=== PATIENT | female | born 1980 | race Caucasian/White ===

== ENCOUNTER → 2017-04-27 | Outpatient (CLI) | payer OTHER ==
--- NOTE | 2017-04-28 08:59 | RADIOLOGY REPORT (SQ) ---
EXAM DESCRIPTION: MRI HEAD COMBO COMPLETED DATE/TIME: 04/27/2017 9:34 pm REASON FOR STUDY: MULTIPLE SCLEROSIS G35 MULTIPLE SCLEROSIS COMPARISON: None. TECHNIQUE: Multiplanar imaging includes noncontrasted T1, T2, FLAIR, diffusion with ADC map and post gadolinium contrast T1 sequences. Images stored on PACS. CONTRAST TYPE AND DOSE: 20 mL Multihance. RENAL FUNCTION: None required. The patient is less than 50 years old. LIMITATIONS: None. FINDINGS: ANATOMY: No anomalies. Normal vascular flow voids. Pituitary fossa normal. CSF SPACES: Normal in size and contour. No hemorrhage. CEREBRUM: Sulci and gyri normal in size and contour. Approximately 10 subcentimeter foci of increase d signal on FLAIR sequence in the frontal lobe deep white matter, the largest about 7 mm right fronta l lobe. No evidence of hemorrhage, mass, or extraaxial fluid collection. No abnormal enhancement pos t contrast. POSTERIOR FOSSA: No signal alteration. No hemorrhage. No edema, masses, or mass effect. Internal sofya tory canals, cerebellopontine angles, mastoids normal. No enhancing lesions. No abnormal enhancement post contrast. DIFFUSION IMAGING: Negative for acute or subacute infarction. ORBITS: No masses. Globes normal. PARANASAL SINUSES: No fluid levels. Mucosa normal. OTHER: No other significant finding. IMPRESSION: Quiescent white matter lesions. No evidence of active demyelination. TECHNICAL DOCUMENTATION: JOB ID: [id number] [employer]- All Rights Reserved
== END ==
LOC: RAD 20:46
PROVIDERS: ATTEND Specialist
DX: G35 Multiple sclerosis (principal)
CPT/HCPCS: 70553; A9577

== ENCOUNTER 2018-05-05 18:43 | Emergency (ER) | payer OTHER ==
[2018-05-05] MEDS ORDERED: ONDANSETRON 4 MG TAB.RAPDIS PO ONE (19:36)
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
[2018-05-05 20:38] VITALS: BP 131/80
== END 2018-05-05 20:38 | disposition home or self-care (01) ==
LOC: ER 18:43
DX: S16.1XXA Strain of muscle, fascia and tendon at neck level, initial encounter (principal); R51 Headache; R42 Dizziness and giddiness; R11.0 Nausea; V43.52XA Car driver injured in collision with other type car in traffic accident, initial encounter; Z88.0 Allergy status to penicillin; Z90.49 Acquired absence of other specified parts of digestive tract; Z90.710 Acquired absence of both cervix and uterus
CPT/HCPCS: 99284; 70450; 72125; S0119

== ENCOUNTER 2018-06-06 13:51 | Emergency (ER) | payer OTHER ==
[2018-06-06 14:10] VITALS: BP 116/74
[2018-06-06] MEDS ORDERED: OXYCODONE HCL IR 5 MG TABLET PO ONE (14:59)
--- NOTE | 2018-06-06 15:01 | ER Document Report ---
ED Medical Screen (RME) - General Chief Complaint: Abdominal Pain Stated Complaint: ABDOMINAL PAIN Time Seen by Provider: 06/06/18 14:55 Notes: RAPID MEDICAL EVALUATION DISCLOSURE I have seen this patient as part of a Rapid Medical Evaluation and, if applicable, placed any initially appropriate orders. The patient will be seen and fully evaluated, including a full history and physical exam, by a provider ( in Main ED or Fast Track) when a room becomes available. 37-year-old female here with complaints of abdominal wall redness and "mass" ongoing for the past 1 week but progressively worsening. She has also had some fevers and chills. She has tried ibuprofen with not much relief. She has no prior history of MRSA. EXAM There are a few spots of acne vulgaris on abdominal wall without fluctuance or induration On the right abdominal wall, there is a 8 x 8 cm area of erythema induration Difficult to ascertain if there is any fluctuance to this area TRAVEL OUTSIDE OF THE [place] IN LAST 30 DAYS: No - Related Data Allergies/Adverse Reactions: glatiramer acetate [From Copaxone] Allergy (Intermediate, Verified 06/06/18 13: 53) Penicillins Allergy (Verified 06/06/18 13:53) Past Medical History - Social History Chew tobacco use (# tins/day): No Frequency of alcohol use: None Drug Abuse: None Pulmonary Medical History: Reports: Hx Bronchitis, Hx Pneumonia Neurological Medical History: Denies: Hx Seizures Renal/ Medical History: Denies: Hx Peritoneal Dialysis Musculoskeltal Medical History: Reports Hx Arthritis, Reports Hx Multiple Sclerosis, Reports Hx Musculoskeletal Deformity, Reports Hx Musculoskeletal Trauma Psychiatric Medical History: Reports: Hx Depression Past Surgical History: Reports: Hx Appendectomy, Hx Cholecystectomy, Hx Hysterectomy, Hx Tonsillectomy. Denies: Hx Pacemaker - Immunizations Hx Diphtheria, Pertussis, Tetanus Vaccination: Yes Physical Exam - Vital signs Vitals: Temp Pulse Resp BP Pulse Ox 97.7 F 110 H 20 116/74 97 06/06/18 14:08 06/06/18 14:08 06/06/18 14:08 06/06/18 14:08 06/06/18 14:08 Course - Vital Signs Vital signs: Temp Pulse Resp BP Pulse Ox 97.7 F 110 H 20 116/74 97 06/06/18 14:08 06/06/18 14:08 06/06/18 14:08 06/06/18 14:08 06/06/18 14:08
[2018-06-06 15:35] LABS: ABSOLUTE BASOPHILS # (AUTO) 0.1 10^3/uL (0.0-0.2); ABSOLUTE EOSINOPHILS # (AUTO) 0.2 10^3/uL (0.0-0.6); ABSOLUTE LYMPHOCYTES (AUTO) 1.5 10^3/uL (0.5-4.7); ABSOLUTE NEUT (AUTO) 15.4 10^3/uL (1.7-8.2); BASOPHILS % (AUTO) 0.5 % (0-2); EOSINOPHILS % (AUTO) 0.9 % (0-6); HEMATOCRIT 36.5 % (36.0-47.0); HEMOGLOBIN 12.3 g/dL (12.0-15.5); LYMPHOCYTES % (AUTO) 8.1 % (13-45); MEAN CORPUSCULAR HEMOGLOBIN 29.3 pg (27.0-33.4); MEAN CORPUSCULAR HGB CONC 33.8 g/dL (32.0-36.0); MEAN CORPUSCULAR VOLUME 87 fl (80-97); MONOCYTES % (AUTO) 5.6 % (3-13); PLATELET COUNT 369 10^3/uL (150-450); RED CELL DISTRIBUTION WIDTH 14.1 % (11.5-14.0); SEGMENTED NEUTROPHILS % (AUTO) 84.9 % (42-78); TOTAL CELLS COUNTED % (AUTO) 100 %; WHITE BLOOD COUNT 18.1 10^3/uL (4.0-10.5)
[2018-06-06 15:57] LABS: ALANINE AMINOTRANSFERASE 23 U/L (9-52); ALBUMIN 4.2 g/dL (3.5-5.0); ALKALINE PHOSPHATASE 118 U/L (38-126); ANION GAP 16 (5-19); ASPARTATE AMINO TRANSFERASE 17 U/L (14-36); BILIRUBIN,DIRECT 0.8 mg/dL (0.0-0.4); BLOOD UREA NITROGEN 16 mg/dL (7-20); CALCIUM 9.7 mg/dL (8.4-10.2); CARBON DIOXIDE 26 mmol/L (22-30); CHLORIDE 104 mmol/L (98-107); GLUCOSE 99 mg/dL (75-110); LIPASE 44.3 U/L (23-300); POTASSIUM 3.4 mmol/L (3.6-5.0); SODIUM 146.4 mmol/L (137-145); TOTAL PROTEIN 7.5 g/dL (6.3-8.2)
[2018-06-06] MEDS ORDERED: LIDOCAINE 1% INJ-PF (10 MG/ML) 30 ML SDV INJ ONE ×2 (16:26→17:51)
--- NOTE | 2018-06-06 16:32 | ER Document Report ---
ED General - General TRAVEL OUTSIDE OF THE U.S. IN LAST 30 DAYS: No <TANIA RANDALL - Last Filed: 06/06/18 18:07> <ROGE MORIN - Last Filed: 06/07/18 02:11> - General Chief Complaint: Abdominal Pain Stated Complaint: ABDOMINAL PAIN Time Seen by Provider: 06/06/18 14:55 - HPI Notes: Patient is a 37-year-old female with a history of MS who presents to the ED complaining of an abscess to her right lower abdomen area 1 week. Patient states that she has redness, swelling, and pain associated. She has not noticed any discharge or red streaks at this time. She is still eating and drinking without difficulties. She is urinating normally aside from increased frequency and is having normal bowel movements. Patient states that she has felt sweats on occasion since the start of her abscess. Patient states that she is allergic to penicillins which causes a rash. She denies any history of MRSA. She has no other concerns or complaints at this time. Denies any headache, fever, neck pain, URI, sore throat, chest pain, palpitations, syncope , cough, shortness of breath, wheeze, dyspnea, nausea/vomiting/diarrhea, urinary retention, dysuria, hematuria. (TANIA RANDALL) - Related Data Allergies/Adverse Reactions: glatiramer acetate [From Copaxone] Allergy (Intermediate, Verified 06/06/18 13: 53) Penicillins Allergy (Verified 06/06/18 13:53) Past Medical History - Social History Smoking Status: Never Smoker Chew tobacco use (# tins/day): No Frequency of alcohol use: None Drug Abuse: None Family History: Arthritis, CAD, COPD, CVA, DM, Hyperlipidemia, Hypertension, Malignancy, Thyroid Disfunction Patient has suicidal ideation: No Patient has homicidal ideation: No Pulmonary Medical History: Reports: Hx Bronchitis, Hx Pneumonia Neurological Medical History: Denies: Hx Seizures Renal/ Medical History: Denies: Hx Peritoneal Dialysis Musculoskeletal Medical History: Reports Hx Arthritis, Reports Hx Multiple Sclerosis, Reports Hx Musculoskeletal Deformity, Reports Hx Musculoskeletal Trauma Psychiatric Medical History: Reports: Hx Depression Past Surgical History: Reports: Hx Appendectomy, Hx Cholecystectomy, Hx Hysterectomy, Hx Tonsillectomy. Denies: Hx Pacemaker - Immunizations Hx Diphtheria, Pertussis, Tetanus Vaccination: Yes <TANIA RANDALL - Last Filed: 06/06/18 18:07> Review of Systems - Review of Systems -: Yes All other systems reviewed and negative <TONIA,TANIA - Last Filed: 06/06/18 18:07> Physical Exam <TONIA,TANIA - Last Filed: 06/06/18 18:07> <ROGE MORIN - Last Filed: 06/07/18 02:11> - Vital signs Vitals: Temp Pulse Resp BP Pulse Ox 97.7 F 110 H 20 116/74 97 06/06/18 14:08 06/06/18 14:08 06/06/18 14:08 06/06/18 14:08 06/06/18 14:08 - Notes Notes: PHYSICAL EXAMINATION: GENERAL: Well-appearing, well-nourished and in no acute distress. LUNGS: Breath sounds clear to auscultation bilaterally and equal. No wheezes rales or rhonchi. HEART: Regular rate and rhythm without murmurs, rubs, gallops. ABDOMEN: Soft, nondistended abdomen. No guarding, no rebound. No masses appreciated. Normal bowel sounds present. No CVA tenderness bilaterally. see skin- Musculoskeletal: FROM to passive/active. Strength 5+/5. Extremities: No cyanosis, clubbing, or edema b/l. Peripheral pulses 2+. Capillary refill less than 3 seconds. NEUROLOGICAL: Cranial nerves grossly intact. Normal speech, normal gait. Normal sensory, motor exams PSYCH: Normal mood, normal affect. SKIN: There is an 8x5cm indurated, erythemic, macular area to the rt lower abd wall. + tenderness associated w/o obvious fluctuance. No streaks. (TONIA,TANIA) Course - Laboratory Result Diagrams: 06/06/18 15:20 06/06/18 15:20 <TANIA RANDALL - Last Filed: 06/06/18 18:07> - Laboratory Result Diagrams: 06/06/18 15:20 06/06/18 15:20 <ROGE MORIN - Last Filed: 06/07/18 02:11> - Re-evaluation Re-evalutation: 06/06/18 16:[address] Morin who performed a bedside US. No definite borders to the possible abscess within the infection. We will continue with a CT scan of the abd/pelv. 06/06/18 18:07 Patient is an afebrile, well-hydrated, 37-year-old female who presents to the ED with an abdominal wall cellulitis. Vitals are acceptable without any significant tachycardia, tachypnea, or hypoxia. PE is otherwise unremarkable. Patient is nontoxic-appearing and is tolerating p.o. without any difficulties. CBC did show an elevated white count at 18. CMP was unremarkable. CT scan with IV contrast did not show any evidence of abscess. I did review this thoroughly with Dr. Morin. No I&D warranted at this time. We will give her Cleocin IV and send her home with keflex/bactrim. Reviewed with patient that she needs to monitor symptoms very closely and have a strict follow-up in 48 hours or sooner if warranted with your PCM or come back to the ED. Patient is in agreement. (TANIA RANDALL) 06/07/18 02:06 bedside ultrasound of the abdominal wall was performed by myself. Patient found to have an anechoic fluid collection with internal debris in the right mid abdomen without definitive border. Patient's ultrasound showed cobblestoning which can be indicative of cellulitis. CT scan was obtained and did not show an abscess. Patient advised to return for repeat exam in 48 hours. (ROGE MORIN) - Vital Signs Vital signs: Temp Pulse Resp BP Pulse Ox 97.7 F 110 H 20 116/74 97 06/06/18 14:08 06/06/18 14:08 06/06/18 14:08 06/06/18 14:08 06/06/18 14:08 - Laboratory Laboratory results interpreted by me: 06/06/18 06/06/18 15:20 15:20 WBC 18.1 H RDW 14.1 H Seg Neutrophils % 84.9 H Lymphocytes % 8.1 L Absolute Neutrophils 15.4 H Sodium 146.4 H Potassium 3.4 L Direct Bilirubin 0.8 H Discharge <TANIA RANDALL - Last Filed: 06/06/18 18:07> <ROGE MORIN - Last Filed: 06/07/18 02:11> - Discharge Clinical Impression: Cellulitis of right abdominal wall Condition: Stable Disposition: HOME, SELF-CARE Instructions: Cellulitis ([facility]), Cephalexin ([facility]) Additional Instructions: Keep the skin clean Wash with soap and water Tylenol/ibuprofen if needed Triple antibiotic ointment daily Take medication as directed Monitor for any worsening symptoms Recheck with your PCM in 48 hours or sooner if needed* You may return to the ED in 48 hours as well in lieu of your PCM Consider consult with General Surgeon for ongoing/worsening symptoms Return to the ED with any worsening symptoms and/or development of fever, headache, chest pain, palpitations, syncope, shortness of breath, trouble breathing, abdominal pain, n/v/d, abscess, purulent discharge, red streaks, worsening swelling, or other worsening symptoms that are concerning to you. Prescriptions: Cephalexin Monohydrate [Keflex 500 mg Capsule] 500 mg PO TID #30 capsule Sulfamethoxazole/Trimethoprim [Bactrim Ds Tablet] 1 each PO BID #20 tablet Referrals: MYNOR CUNHA MD [Primary Care Provider] - 06/08/18
--- NOTE | 2018-06-06 17:49 | RADIOLOGY REPORT (SQ) ---
EXAM DESCRIPTION: CT ABD/PELVIS WITH IV ONLY COMPLETED DATE/TIME: 06/06/2018 5:30 pm REASON FOR STUDY: R abd wall abscess? COMPARISON: None. TECHNIQUE: CT scan of the abdomen and pelvis performed using helical scanning technique with dynamic intravenous contrast injection. No oral contrast. Images reviewed with lung, soft tissue, and bone windows. Reconstructed coronal and sagittal MPR images reviewed. Delayed images for evaluation of the urinary system also acquired. All images stored on PACS. All CT scanners at this facility use dose modulation, iterative reconstruction, and/or weight based d osing when appropriate to reduce radiation dose to as low as reasonably achievable (ALARA). [facility]: Dose Right [facility]: CareDose [facility]: Dose Right [facility]: Teradose 4D [facility]: [facility] CONTRAST TYPE AND DOSE: contrast/concentration: Isovue 370.00 mg/ml; Total Contrast Delivered: 92.0 ml; Total Saline Delivered: 45.0 ml RENAL FUNCTION: None required. The patient is less than 50 years old. RADIATION DOSE: CT Rad equipment meets quality standard of care and radiation dose reduction techniq ues were employed. CTDIvol: 12.3 - 14.2 mGy. DLP: 1377 mGy-cm.. LIMITATIONS: None. FINDINGS: LOWER CHEST: No significant findings. No nodules or infiltrates. LIVER: Normal size. No masses. No dilated ducts. SPLEEN: Normal size. No focal lesions. PANCREAS: No masses. No significant calcifications. No adjacent inflammation or peripancreatic fluid collections. Pancreatic duct not dilated. GALLBLADDER: Surgically absent. ADRENAL GLANDS: No significant masses or asymmetry. RIGHT KIDNEY AND URETER: Multiple cysts. No significant calcifications. No hydronephrosis or hydr oureter. LEFT KIDNEY AND URETER: Multiple cysts. No significant calcifications. No hydronephrosis or hydro ureter. AORTA AND VESSELS: No aneurysm. No dissection. Renal arteries, SMA, celiac without stenosis. RETROPERITONEUM: No retroperitoneal adenopathy, hemorrhage or masses. BOWEL AND PERITONEAL CAVITY: No masses or inflammatory changes. No free fluid or peritoneal masses. APPENDIX: Surgically absent. PELVIS: No mass. No free fluid. Normal bladder. ABDOMINAL WALL: Edema is seen along the right lateral abdominal wall. There is an abscess. BONES: No significant or acute findings. OTHER: No other significant finding. IMPRESSION: Innumerable renal cysts. Soft tissue edema along the right lateral abdominal wall without evidence for abscess. TECHNICAL DOCUMENTATION: JOB ID: [id number] Quality ID # [id number]: Final reports with documentation of one or more dose reduction techniques (e.g., Au tomated exposure control, adjustment of the mA and/or kV according to patient size, use of iterative reconstruction technique) 2010 [employer]- All Rights Reserved Reading location - IP/workstation name: [email or web address]
[2018-06-06] MEDS ORDERED: CLINDAMYCIN 600 MG/D5W RTU 600 MG/50 ML RTUPB IV SCH (18:00)
[2018-06-06] MEDS ORDERED: METOCLOPRAMIDE HCL INJ/PF 10 MG/2 ML SDV IV ONE (18:04)
[2018-06-06] MEDS ORDERED: ONDANSETRON ODT 4 MG TAB (6 TAB/ER DISP) PO PRN (18:19)
== END 2018-06-06 18:53 | disposition home or self-care (01) ==
LOC: ER 13:51
DX: L03.311 Cellulitis of abdominal wall (principal); R35.0 Frequency of micturition; R61 Generalized hyperhidrosis; Z88.0 Allergy status to penicillin; Z88.8 Allergy status to other drugs, medicaments and biological substances
CPT/HCPCS: 99284; 96375; 96365; 36415; 87040; 83690; 85025; 80053; 74177; J3490; J2765

== ENCOUNTER 2018-06-12 12:55 | Observation (INO) | payer OTHER ==
[2018-06-12] MEDS ORDERED: NORMAL SALINE 1000 ML 1,000 ML IV ONE (14:28)
[2018-06-12] MEDS ORDERED: VANCOMYCIN HCL INJ 1000 MG VIAL IV ONE (14:29)
[2018-06-12] MEDS ORDERED: CEFTRIAXONE 1 GM/D5W RTU 1 GM/50 ML RTUPB IV ONE (14:29)
--- NOTE | 2018-06-12 14:30 | ER Document Report ---
ED Medical Screen (RME) - General Chief Complaint: Abscess Stated Complaint: STOMACH PAIN Time Seen by Provider: 06/12/18 14:26 TRAVEL OUTSIDE OF THE [place] IN LAST 30 DAYS: No - HPI Notes: 06/12/18 14:30 Patient with abdominal wall cellulitis recently treated with Keflex and Bactrim states now having purulent drainage no improvement of the cellulitis. - Related Data Allergies/Adverse Reactions: glatiramer acetate [From Copaxone] Allergy (Intermediate, Verified 06/12/18 12: 56) Penicillins Allergy (Verified 06/12/18 12:56) Past Medical History Pulmonary Medical History: Reports: Hx Bronchitis, Hx Pneumonia Neurological Medical History: Denies: Hx Seizures Renal/ Medical History: Denies: Hx Peritoneal Dialysis Musculoskeltal Medical History: Reports Hx Arthritis, Reports Hx Multiple Sclerosis, Reports Hx Musculoskeletal Deformity, Reports Hx Musculoskeletal Trauma Psychiatric Medical History: Reports: Hx Depression Past Surgical History: Reports: Hx Appendectomy, Hx Cholecystectomy, Hx Hysterectomy, Hx Tonsillectomy. Denies: Hx Pacemaker - Immunizations Hx Diphtheria, Pertussis, Tetanus Vaccination: Yes Review of Systems - Review of Systems Constitutional: Other - Abdominal wall cellulitis abscess Physical Exam - Vital signs Vitals: Temp Pulse Resp BP Pulse Ox 98.4 F 96 20 127/75 H 98 06/12/18 13:23 06/12/18 13:23 06/12/18 13:23 06/12/18 13:23 06/12/18 13:23 - Respiratory Respiratory status: No respiratory distress Chest status: Nontender Breath sounds: Normal Chest palpation: Normal Course - Vital Signs Vital signs: Temp Pulse Resp BP Pulse Ox 98.4 F 96 20 127/75 H 98 06/12/18 13:23 06/12/18 13:23 06/12/18 13:23 06/12/18 13:23 06/12/18 13:23 Doctor's Discharge - Discharge Referrals: MYNOR CUNHA MD [Primary Care Provider] - Follow up as needed
[2018-06-12] MEDS ORDERED: CEFTRIAXONE INJ 1000 MG VIAL ONE (15:24)
[2018-06-12] MEDS ORDERED: VANCOMYCIN HCL INJ 1000 MG VIAL ONE (15:24)
[2018-06-12] MEDS ORDERED: MORPHINE SULFATE 10 MG/ML INJ IV ONE (15:32)
[2018-06-12] MEDS ORDERED: METOCLOPRAMIDE HCL INJ/PF 10 MG/2 ML SDV IV ONE (15:32)
[2018-06-12 15:34] LABS: ABSOLUTE EOSINOPHILS # (AUTO) 0.8 10^3/uL (0.0-0.6); ABSOLUTE LYMPHOCYTES (AUTO) 3.6 10^3/uL (0.5-4.7); ABSOLUTE MONOCYTES (AUTO) 0.8 10^3/uL (0.1-1.4); ABSOLUTE NEUT (AUTO) 9.3 10^3/uL (1.7-8.2); BASOPHILS % (AUTO) 0.3 % (0-2); EOSINOPHILS % (AUTO) 5.2 % (0-6); HEMATOCRIT 37.5 % (36.0-47.0); HEMOGLOBIN 12.6 g/dL (12.0-15.5); MEAN CORPUSCULAR HEMOGLOBIN 29.2 pg (27.0-33.4); MEAN CORPUSCULAR HGB CONC 33.6 g/dL (32.0-36.0); MEAN CORPUSCULAR VOLUME 87 fl (80-97); MONOCYTES % (AUTO) 5.5 % (3-13); PLATELET COUNT 481 10^3/uL (150-450); RED BLOOD COUNT 4.31 10^6/uL (3.72-5.28); TOTAL CELLS COUNTED % (AUTO) 100 %; WHITE BLOOD COUNT 14.5 10^3/uL (4.0-10.5)
--- NOTE | 2018-06-12 15:36 | ER Document Report ---
ED Skin Rash/Insect Bite/Abscs - General Chief Complaint: Abscess Stated Complaint: STOMACH PAIN Time Seen by Provider: 06/12/18 14:26 Mode of Arrival: Ambulatory Information source: Patient TRAVEL OUTSIDE OF THE [place] IN LAST 30 DAYS: No - HPI Patient complains to provider of: Tender/swollen area Onset: Last week Onset/Duration: Persistent, Worse Quality of pain: Fullness, Pressure Severity: Moderate Skin Character: Abscess, Drainage Skin Temperature: Warm Quality of rash: Painful Notes: Patient presents to the emergency room today complaining of cellulitis with abscess to the right anterior abdominal wall that has been present for the past 7 days or more, was seen in this emergency department on the and diagnosed with cellulitis after having blood work, ultrasound and CT scan showing no fluid collection to be drained, however today patient does have fluid drainage from the area, it is tender and swollen, she reports intermittent fevers as well as nausea, no history of similar symptoms previously, patient was started on Bactrim and Keflex on the - Related Data Allergies/Adverse Reactions: glatiramer acetate [From Copaxone] Allergy (Intermediate, Verified 06/12/18 12: 56) Penicillins Allergy (Verified 06/12/18 12:56) Past Medical History - General Information source: Patient - Social History Smoking Status: Never Smoker Chew tobacco use (# tins/day): No Drug Abuse: None Family History: Arthritis, CAD, COPD, CVA, DM, Hyperlipidemia, Hypertension, Malignancy, Thyroid Disfunction Patient has suicidal ideation: No Patient has homicidal ideation: No Pulmonary Medical History: Reports: Hx Bronchitis, Hx Pneumonia Neurological Medical History: Denies: Hx Seizures Renal/ Medical History: Denies: Hx Peritoneal Dialysis Musculoskeletal Medical History: Reports Hx Arthritis, Reports Hx Multiple Sclerosis, Reports Hx Musculoskeletal Deformity, Reports Hx Musculoskeletal Trauma Psychiatric Medical History: Reports: Hx Depression Past Surgical History: Reports: Hx Appendectomy, Hx Cholecystectomy, Hx Hysterectomy, Hx Tonsillectomy. Denies: Hx Pacemaker - Immunizations Hx Diphtheria, Pertussis, Tetanus Vaccination: Yes Review of Systems - Review of Systems Constitutional: Fever EENT: No symptoms reported Cardiovascular: No symptoms reported Respiratory: No symptoms reported Gastrointestinal: See HPI Genitourinary: No symptoms reported Female Genitourinary: No symptoms reported Musculoskeletal: No symptoms reported Skin: See HPI Hematologic/Lymphatic: No symptoms reported Neurological/Psychological: No symptoms reported -: Yes All other systems reviewed and negative Physical Exam - Vital signs Vitals: Temp Pulse Resp BP Pulse Ox 98.4 F 96 20 127/75 H 98 06/12/18 13:23 06/12/18 13:23 06/12/18 13:23 06/12/18 13:23 06/12/18 13:23 Interpretation: Normal - General General appearance: Appears well, Alert - HEENT Head: Normocephalic, Atraumatic Eyes: Normal Pupils: PERRL - Respiratory Respiratory status: No respiratory distress Chest status: Nontender Breath sounds: Normal Chest palpation: Normal - Cardiovascular Rhythm: Regular Heart sounds: Normal auscultation Murmur: No - Abdominal Inspection: Normal, Obese Distension: No distension Bowel sounds: Normal Tenderness: Other - Right anterior lower abdominal wall with large area of erythema, with tender firm nodular pockets in a small area with a small amount of purulent drainage Organomegaly: No organomegaly - Back Back: Normal, Nontender - Extremities General upper extremity: Normal inspection, Nontender, Normal color, Normal ROM , Normal temperature General lower extremity: Normal inspection, Nontender, Normal color, Normal ROM , Normal temperature, Normal weight bearing. No: Nata's sign - Neurological Neuro grossly intact: Yes Cognition: Normal Orientation: AAOx4 [place] Coma Scale Eye Opening: Spontaneous [place] Coma Scale Verbal: Oriented [place] Coma Scale Motor: Obeys Commands [place] Coma Scale Total: 15 Speech: Normal Motor strength normal: LUE, RUE, LLE, RLE Sensory: Normal - Psychological Associated symptoms: Normal affect, Normal mood - Skin Skin Temperature: Warm Skin Moisture: Dry Skin Color: Normal Course - Re-evaluation Re-evalutation: 06/12/18 15:35 Patient with moderate sized anterior right lower abdominal wall abscess which started draining today, she is placed on antibiotics as an outpatient on the , symptoms got worse, she continues to have fever as well as pain and swelling in the area, on exam patient appears to have several loculations just under the skin, therefore surgery was called to come and evaluate the patient for possible drainage in the OR, patient has been n.p.o. today as she has not had an appetite 06/12/18 16:01 Patient seen in about weighted by Dr. Oneill who agrees that patient needs OR drainage, will take patient to OR and likely discharge afterwards - Vital Signs Vital signs: Temp Pulse Resp BP Pulse Ox 98.4 F 96 20 127/75 H 98 06/12/18 13:23 06/12/18 13:23 06/12/18 13:23 06/12/18 13:23 06/12/18 13:23 - Laboratory Result Diagrams: 06/12/18 15:10 06/12/18 15:10 Laboratory results interpreted by me: 06/12/18 06/12/18 15:10 15:10 WBC 14.5 H Plt Count 481 H Absolute Neutrophils 9.3 H Absolute Eosinophils 0.8 H Glucose 69 L Discharge - Discharge Clinical Impression: Abdominal wall abscess Condition: Stable Disposition: ADMITTED OBSERVATION Admitting Provider: Surgicalist Unit Admitted: OR Referrals: MYNOR CUNHA MD [Primary Care Provider] - Follow up as needed
[2018-06-12 15:56] LABS: ANION GAP 18 (5-19); BLOOD UREA NITROGEN 12 mg/dL (7-20); CALCIUM 10.1 mg/dL (8.4-10.2); CARBON DIOXIDE 22 mmol/L (22-30); CHLORIDE 105 mmol/L (98-107); GLUCOSE 69 mg/dL (75-110); POTASSIUM 4.1 mmol/L (3.6-5.0); SODIUM 144.7 mmol/L (137-145)
[2018-06-12] MEDS ORDERED: FENTANYL CITRATE INJ/PF 100 MCG/2 ML AMPUL ONE ×2 (17:11→18:45)
[2018-06-12] MEDS ORDERED: PROPOFOL INJ 200 MG/20 ML VIAL IV ONE (17:12)
[2018-06-12] MEDS ORDERED: ACETAMINOPHEN 1,000 MG/100 ML RTUPB IV ONE (17:12)
[2018-06-12] MEDS ORDERED: MIDAZOLAM 2 MG/2 ML INJ ONE ×2 (17:12→17:54)
[2018-06-12] MEDS ORDERED: MORPHINE SULFATE 10 MG/ML INJ IV PRN (17:21)
[2018-06-12] MEDS ORDERED: FENTANYL CITRATE INJ/PF 100 MCG/2 ML AMPUL IV PRN ×3 (17:21)
[2018-06-12] MEDS ORDERED: PROMETHAZINE HCL INJ 25 MG/1 ML VIAL IV PRN (17:21)
[2018-06-12] MEDS ORDERED: MEPERIDINE HCL/PF INJ 25 MG/1 ML DISP.SYRIN IV PRN (17:21)
[2018-06-12] MEDS ORDERED: DIPHENHYDRAMINE HCL 50 MG/ML VIAL IV PRN (17:21)
[2018-06-12] MEDS ORDERED: ONDANSETRON HCL INJ/PF 4 MG/2 ML SDV IV PRN (17:21)
[2018-06-12] MEDS ORDERED: LIDOCAINE 0.5% INJ-PF (5 MG/ML) 50 ML SDV ONE (17:23)
[2018-06-12] MEDS ORDERED: LIDOCAINE 1% INJ-PF (10 MG/ML) 30 ML SDV ONE (17:54)
[2018-06-12] MEDS ORDERED: MORPHINE SULFATE 10 MG/ML INJ ONE (18:46)
[2018-06-12] MEDS ORDERED: ONDANSETRON 4 MG TAB.RAPDIS PO PRN (19:08)
--- NOTE | 2018-06-12 19:25 | HISTORY AND PHYSICAL E ---
History and Physical NAME: ELSA PORTER : 1980 AGE: 37Y ADMITTED: 06/12/2018 ROOM: ED36 CHIEF COMPLAINT: Abdominal wall pain. HISTORY OF PRESENT ILLNESS: This is a 37-year-old female with known history of MS. Noted redness along the right lower anterior abdominal wall. She came to the ER on 06/06/18 and given p.o. Septra and Keflex since SHE IS ALLERGIC TO PENICILLIN. However, the area got more red and tender and today, spontaneously drained and went to the Emergency Room. She was noted to have more inflammation around the area and fluctuant towards the lateral side. She claims she had a cyst there to begin with but relatively small. PAST HISTORY: MS and takes medication for this. FAMILY HISTORY: Unremarkable. SOCIAL HISTORY: Denies smoking, drinking or recreational drug use. REVIEW OF SYSTEMS: Admits to having fever and chills and pain along the right anterior abdominal wall. Admits also to constipation. No diarrhea. No shortness of breath. No chest pain. No headaches. No balance problems. PHYSICAL EXAMINATION: GENERAL: Well-developed, well-nourished, 37-year-old female, alert and oriented, complaining of right lower quadrant abdominal wall pain. NECK: Supple, no thyromegaly. LUNGS: Clear. HEART: Regular sinus rhythm. ABDOMEN: Soft. There is an area of redness along the right lower abdominal wall, roughly measuring about 10 cm in diameter with the middle part with an opening but no drainage at this time. However, she has a fluctuant area just lateral to it and this is suspicious for another abscess. IMPRESSION: ABDOMINAL WALL ABSCESS. PLAN: Started on IV antibiotics with Rocephin and vancomycin. N.P.O. and then to OR for incision and drainage of the abscess, abdominal wall. DICTATING PHYSICIAN: SAIMA PARSON M.D. [id number] PHY#: [id number] ID: [id number] JOB#: [id number] ACCT: [id number] cc:SAIMA PARSON M.D. >
[2018-06-12] MEDS: OXYCODONE-ACETAMINOPHEN 5-325 MG TABLET PO PRN (21:41)
[2018-06-12] MEDS: NORMAL SALINE 1000 ML 1,000 ML IV PRN (21:42)
[2018-06-12] MEDS: SULFAMETHOXAZOLE/TRIMETHOPRIM 800-160 MG TABLET PO SCH (23:48)
[2018-06-13] MEDS: OXYCODONE-ACETAMINOPHEN 5-325 MG TABLET PO PRN (03:32)
[2018-06-13] MEDS: SULFAMETHOXAZOLE/TRIMETHOPRIM 800-160 MG TABLET PO SCH (05:45)
[2018-06-13] MEDS: NORMAL SALINE 1000 ML 1,000 ML IV PRN (05:45)
--- NOTE | 2018-06-13 06:20 | OPERATIVE REPORT E ---
Operative Report NAME: ELSA PORTER : 1980 AGE: 37Y DATE OF SURGERY: 06/12/2018 ROOM: 206 PREOPERATIVE DIAGNOSIS: Abscess of right lower quadrant abdominal wall. POSTOPERATIVE DIAGNOSIS: Abscess of right lower quadrant abdominal wall. PROCEDURE: Incision and drainage of abdominal wall abscess. SURGEON: SAIMA PARSON M.D. ANESTHESIA: Local MAC. INDICATION: This is a 37-year-old female with known history of MS, noted to have some cyst on the right lower abdominal wall, which got painful about a week ago. She went to the ED at that time and prescribed Septra and Keflex. However, it continued to become red and painful and went back to the ED today. It apparently spontaneously drained, but patient still has some fluctuant area lateral to it. She needed incision and drainage. DESCRIPTION OF PROCEDURE: After adequate IV sedation, the patient was placed in supine position. The abdominal wall on the right side was then prepped and draped in the usual sterile fashion. Local anesthesia infiltrated along the fluctuant area to a distance of about 6 cm. A 6 cm transverse incision was made and a lot of purulent material extruded out. Some of this exudate was quite formed. The cavity was palpated and no evidence of other collections noted. It was then irrigated with 3 L of saline. The cavity appears to be just at the subcutaneous area and not going through the fascia. A 0.5 inch Iodoform gauze was then used to pack the wound using the whole bottle. Sterile dressings were then placed on top of the wound with 4 x 4, ABD. The patient tolerated the procedure well. Needle, instrument, and sponge count were all correct, and estimated blood loss about 5 mL. The patient then brought to recovery in satisfactory condition. DICTATING PHYSICIAN: SAIMA PARSON M.D. [id number] PHY#: [id number] ID: [id number] JOB#: [id number] ACCT: [id number] cc:SAIMA PARSON M.D. > MTDViridiana
--- NOTE | 2018-06-13 07:35 | DISCHARGE SUMMARY E ---
Discharge Summary NAME: ELSA PORTER : 1980 AGE: 37Y ADMITTED: 06/12/2018 DISCHARGED: 06/13/2018 FINAL DIAGNOSIS: Abscess of the abdominal wall. PROCEDURE DONE: Incision and drainage of abscess, abdominal wall, date 06/12/2018, surgeon Dr. Oneill. HOSPITAL COURSE: This is a 37-year-old female who had a gradually enlarging swelling and painful lump on the right lower abdominal wall for the past week, initially seen in the ED and given p.o. antibiotics. However, for the past 2 days prior to surgery patient was noted to have more swelling and tenderness and erythema. Patient was then brought to the OR for I and D of abscess of the abdominal wall on 06/12/2018. Postoperatively the patient did very well and was discharged improved on 06/13/2018. She was continued on p.o. Bactrim and is to be followed up in the surgical clinic on 06/14/2018 for removal of the packing. DICTATING PHYSICIAN: SAIMA ONEILL M.D. [id number] PHY#: [id number] ID: [id number] JOB#: [id number] ACCT: [id number] cc:SAIMA ONEILL M.D. [facility],
[2018-06-13 08:54] VITALS: BP 107/59
== END 2018-06-13 09:35 | disposition home or self-care (01) ==
LOC: ER 12:55 → EH 16:29 → 2N 20:40
PROVIDERS: ATTEND Surgery
PROC: 0J980ZZ Drainage of Abdomen Subcutaneous Tissue and Fascia, Open Approach (ICD-10-PCS; principal; 2018-06-12 18:00)
DX: L02.211 Cutaneous abscess of abdominal wall (principal); G35 Multiple sclerosis; R50.9 Fever, unspecified; R11.0 Nausea; Z88.0 Allergy status to penicillin; E66.9 Obesity, unspecified; Z68.27 Body mass index [BMI] 27.0-27.9, adult; Z90.49 Acquired absence of other specified parts of digestive tract; Z90.710 Acquired absence of both cervix and uterus
CPT/HCPCS: 10060; 99284; 96375; 96365; 96367; 36415; 87040; 87070; 87205; 85025; 87075; 87077; 80048; 87186; G0378 ×3; J2250; J3010; J3490 ×2; J2765; J2270; J0696; J7030 ×2; J2704; J3370; J0131; 800

== ENCOUNTER 2018-09-30 13:53 | Emergency (ER) | payer OTHER ==
[2018-09-30] MEDS ORDERED: METOCLOPRAMIDE HCL ORAL SOLN 10 MG/10 ML UDCUP PO ONE (14:23)
[2018-09-30] MEDS ORDERED: MAG HYDROX/AL HYDROX/SIMETH SUSP 30 ML UDCUP PO ONE (14:23)
[2018-09-30] MEDS ORDERED: ONDANSETRON 4 MG TAB.RAPDIS PO ONE (14:23)
[2018-09-30] MEDS ORDERED: LIDOCAINE 2% VISCOUS SOLN 20 ML UDCUP PO ONE (14:23)
--- NOTE | 2018-09-30 14:24 | ER Document Report ---
ED Medical Screen (RME) - General Chief Complaint: Abdominal Pain Stated Complaint: VOMITING BLOOD, BLOOD IN STOOL Time Seen by Provider: 09/30/18 14:22 Notes: 38 years old female presents today with an episode of vomited bright red blood. And also noted red blood per rectum whenever she felt the last few days. Having substernal to epigastric burning sensation. Examination benign TRAVEL OUTSIDE OF THE [place] IN LAST 30 DAYS: No - Related Data Allergies/Adverse Reactions: glatiramer acetate [From Copaxone] Allergy (Intermediate, Verified 09/30/18 13: 55) Penicillins Allergy (Verified 09/30/18 13:55) Past Medical History Pulmonary Medical History: Reports: Hx Bronchitis, Hx Pneumonia Neurological Medical History: Denies: Hx Seizures Renal/ Medical History: Denies: Hx Peritoneal Dialysis Musculoskeltal Medical History: Reports Hx Arthritis, Reports Hx Multiple Sclerosis, Reports Hx Musculoskeletal Deformity, Reports Hx Musculoskeletal Trauma Psychiatric Medical History: Reports: Hx Depression Past Surgical History: Reports: Hx Appendectomy, Hx Cholecystectomy, Hx Hysterectomy, Hx Tonsillectomy. Denies: Hx Pacemaker - Immunizations Hx Diphtheria, Pertussis, Tetanus Vaccination: Yes Physical Exam - Vital signs Vitals: Temp Pulse Resp BP Pulse Ox 97.8 F 95 18 113/79 98 09/30/18 13:58 09/30/18 13:58 09/30/18 13:58 09/30/18 13:58 09/30/18 13:58 Course - Vital Signs Vital signs: Temp Pulse Resp BP Pulse Ox 97.8 F 95 18 113/79 98 09/30/18 13:58 09/30/18 13:58 09/30/18 13:58 09/30/18 13:58 09/30/18 13:58 Doctor's Discharge - Discharge Referrals: DEB CARO JR, MD [Primary Care Provider] - Follow up as needed
[2018-09-30 15:12] LABS: ABSOLUTE BASOPHILS # (AUTO) 0.1 10^3/uL (0.0-0.2); ABSOLUTE EOSINOPHILS # (AUTO) 0.2 10^3/uL (0.0-0.6); ABSOLUTE LYMPHOCYTES (AUTO) 2.8 10^3/uL (0.5-4.7); ABSOLUTE MONOCYTES (AUTO) 0.7 10^3/uL (0.1-1.4); ABSOLUTE NEUT (AUTO) 6.8 10^3/uL (1.7-8.2); BASOPHILS % (AUTO) 0.8 % (0-2); EOSINOPHILS % (AUTO) 2.4 % (0-6); HEMATOCRIT 40.5 % (36.0-47.0); HEMOGLOBIN 14.1 g/dL (12.0-15.5); LYMPHOCYTES % (AUTO) 26.4 % (13-45); MEAN CORPUSCULAR HEMOGLOBIN 30.3 pg (27.0-33.4); MEAN CORPUSCULAR HGB CONC 34.9 g/dL (32.0-36.0); MEAN CORPUSCULAR VOLUME 87 fl (80-97); MONOCYTES % (AUTO) 6.2 % (3-13); PLATELET COUNT 320 10^3/uL (150-450); RED BLOOD COUNT 4.66 10^6/uL (3.72-5.28); RED CELL DISTRIBUTION WIDTH 14.1 % (11.5-14.0); SEGMENTED NEUTROPHILS % (AUTO) 64.2 % (42-78); TOTAL CELLS COUNTED % (AUTO) 100 %; WHITE BLOOD COUNT 10.5 10^3/uL (4.0-10.5)
[2018-09-30 15:14] LABS: APPEARANCE,URINE CLEAR; BILIRUBIN,URINE NEGATIVE (NEGATIVE); COLOR,URINE STRAW; GLUCOSE, URINE NEGATIVE (NEGATIVE); KETONES,URINE NEGATIVE (NEGATIVE); LEUKOCYTE ESTERASE,URINE NEGATIVE (NEGATIVE); NITRITE,URINE NEGATIVE (NEGATIVE); PROTEIN,URINE NEGATIVE (NEGATIVE); URINE SPECIFIC GRAVITY 1.005; UROBILINOGEN,URINE NEGATIVE mg/dL (<2.0)
[2018-09-30 15:27] LABS: ALANINE AMINOTRANSFERASE 29 U/L (9-52); ALBUMIN 4.8 g/dL (3.5-5.0); ALKALINE PHOSPHATASE 102 U/L (38-126); ANION GAP 17 (5-19); ASPARTATE AMINO TRANSFERASE 23 U/L (14-36); BILIRUBIN,DIRECT 0.4 mg/dL (0.0-0.4); BILIRUBIN,TOTAL 0.7 mg/dL (0.2-1.3); BLOOD UREA NITROGEN 10 mg/dL (7-20); CALCIUM 10.1 mg/dL (8.4-10.2); CARBON DIOXIDE 23 mmol/L (22-30); CHLORIDE 103 mmol/L (98-107); GLUCOSE 84 mg/dL (75-110); POTASSIUM 3.7 mmol/L (3.6-5.0); SODIUM 142.6 mmol/L (137-145); TOTAL PROTEIN 7.9 g/dL (6.3-8.2)
--- NOTE | 2018-09-30 19:46 | ER Document Report ---
ED General - General Chief Complaint: Abdominal Pain Stated Complaint: VOMITING BLOOD, BLOOD IN STOOL Time Seen by Provider: 09/30/18 14:22 Mode of Arrival: Ambulatory Information source: Patient Notes: This is a 38-year-old female with a history of multiple sclerosis, arthritis, back spasms, MRSA. Patient states she was in usual state of health when she came back from her exercise class and she experienced some nausea and then vomited blood. The patient states it was a one-time episode of vomiting in the look like coffee grounds and then towards the end there was some bright red blood. The patient does report that she intermittently gets black stools. Her medicines include Lyrica, baclofen, Celebrex, Provigil, and Aubagio. TRAVEL OUTSIDE OF THE [place] IN LAST 30 DAYS: No - HPI Onset: Just prior to arrival Onset/Duration: Sudden Quality of pain: No pain Severity: None Pain Level: Denies Associated symptoms: Nausea, Vomiting. denies: Diarrhea Exacerbated by: Denies Relieved by: Denies Similar symptoms previously: No Recently seen / treated by doctor: No - Related Data Allergies/Adverse Reactions: glatiramer acetate [From Copaxone] Allergy (Intermediate, Verified 09/30/18 13: 55) Penicillins Allergy (Verified 09/30/18 13:55) Past Medical History - General Information source: Patient - Social History Smoking Status: Never Smoker Cigarette use (# per day): No Chew tobacco use (# tins/day): No Frequency of alcohol use: None Drug Abuse: None Lives with: Family Family History: Arthritis, CAD, COPD, CVA, DM, Hyperlipidemia, Hypertension, Malignancy, Thyroid Disfunction Patient has suicidal ideation: No Patient has homicidal ideation: No - Past Medical History Cardiac Medical History: Reports: None Pulmonary Medical History: Reports: Hx Bronchitis, Hx Pneumonia Neurological Medical History: Reports: None. Denies: Hx Seizures Endocrine Medical History: Reports: None Renal/ Medical History: Reports: None. Denies: Hx Peritoneal Dialysis Malignancy Medical History: Reports: None Musculoskeletal Medical History: Reports Hx Arthritis, Reports Hx Multiple Sclerosis, Reports Hx Musculoskeletal Deformity, Reports Hx Musculoskeletal Trauma Psychiatric Medical History: Reports: Hx Depression Past Surgical History: Reports: Hx Appendectomy, Hx Cholecystectomy, Hx Hysterectomy, Hx Tonsillectomy. Denies: Hx Pacemaker - Immunizations Hx Diphtheria, Pertussis, Tetanus Vaccination: Yes Review of Systems - Review of Systems Constitutional: No symptoms reported. denies: Chills, Fever EENT: No symptoms reported Cardiovascular: denies: Chest pain, Palpitations, Heart racing Respiratory: No symptoms reported Gastrointestinal: See HPI, Nausea, Vomiting, Constipation. denies: Abdominal pain Genitourinary: No symptoms reported Female Genitourinary: No symptoms reported Musculoskeletal: No symptoms reported Skin: No symptoms reported Hematologic/Lymphatic: No symptoms reported Neurological/Psychological: No symptoms reported Physical Exam - Vital signs Vitals: Temp Pulse Resp BP Pulse Ox 97.8 F 95 18 113/79 98 09/30/18 13:58 09/30/18 13:58 09/30/18 13:58 09/30/18 13:58 09/30/18 13:58 Notes: Physical exam: GENERAL: Patient is alert and oriented x3, no acute distress. HEAD: Atraumatic, normocephalic. EYES: Pupils equal round and reactive to light, extraocular movements intact, sclera anicteric, conjunctiva are normal. ENT: TMs normal, nares patent, oropharynx clear without exudates. Moist mucous membranes. NECK: Normal range of motion, supple without obvious mass. LUNGS: Breath sounds clear to auscultation bilaterally and equal. No wheezes rales or rhonchi. HEART: Regular rate and rhythm without murmurs, rubs or gallops. ABDOMEN: Soft, normoactive bowel sounds. No tenderness to palpation. No guarding, no rebound. No masses appreciated. Rectal exam: Performed in the presence of a female sprinkler installer (the nurse): Brown stool, heme-negative EXTREMITIES: Normal range of motion, no pitting or edema. No clubbing or cyanosis. NEUROLOGICAL: Cranial nerves II through XII grossly intact. Normal speech, moving all extremities. PSYCH: Normal mood, normal affect. SKIN: Warm, Dry, normal turgor, no rashes or lesions noted. Course - Re-evaluation Re-evalutation: 09/30/18 19:44 I discussed the case with the GI doctor at [facility] (Dr. Rockwell) who recommended stopping the Celebrex, going with Protonix twice daily and he took the patient's demographics down for follow-up this week. - Vital Signs Vital signs: Temp Pulse Resp BP Pulse Ox 98.5 F 79 18 105/60 97 09/30/18 20:06 09/30/18 20:06 09/30/18 20:06 09/30/18 20:06 09/30/18 20:06 - Laboratory Result Diagrams: 09/30/18 14:19 09/30/18 14:19 Laboratory results interpreted by me: 09/30/18 14:19 RDW 14.1 H Discharge - Discharge Clinical Impression: Vomiting blood Condition: Stable Disposition: HOME, SELF-CARE Additional Instructions: As we discussed, your labs look good today. The stool was negative for any blood. I did speak to Dr. Rockwell who is a GI doctor and he took down your demographic information so that the office will contact you for follow-up. Ultimately, I think you could use a scope down the esophagus to take a look. He recommended you start a medicine (Protonix) take as prescribed. I would hold off on taking the Celebrex for the next week. Take the Phenergan for nausea. I would like you to follow-up with Dr. Talamantes this week: Call the office on Wednesday. Bring a copy of today's labs and discharge summary with you when you go see Dr. Talamantes. Return to the emergency room for any further vomiting blood or any concerns or getting worse. Prescriptions: Pantoprazole Sodium [Protonix] 20 mg PO BID #30 tablet. Promethazine HCl [Phenergan 25 mg Tablet] 25 mg PO Q6H PRN #15 tablet PRN Reason: Referrals: DEB CARO JR, MD [Primary Care Provider] - 10/03/18
[2018-09-30] MEDS ORDERED: PROMETHAZINE HCL 25 MG TABLET PO ONE (19:50)
[2018-09-30 20:07] VITALS: BP 105/60
== END 2018-09-30 20:06 | disposition home or self-care (01) ==
LOC: ER 13:53
DX: K92.0 Hematemesis (principal); K59.00 Constipation, unspecified; R19.5 Other fecal abnormalities; G35 Multiple sclerosis; M19.90 Unspecified osteoarthritis, unspecified site; M62.838 Other muscle spasm; Z79.891 Long term (current) use of opiate analgesic; Z79.1 Long term (current) use of non-steroidal anti-inflammatories (NSAID); Z79.899 Other long term (current) drug therapy; Z88.8 Allergy status to other drugs, medicaments and biological substances; Z88.0 Allergy status to penicillin; Z90.49 Acquired absence of other specified parts of digestive tract
CPT/HCPCS: 99284; 36415; 85025; 82272; 81025; 80053; 81001; S0119; J3490

== ENCOUNTER 2019-09-28 11:39 | Emergency (ER) | payer OTHER ==
--- NOTE | 2019-09-28 12:10 | ER Document Report ---
ED Medical Screen (RME) - General Chief Complaint: Abscess Stated Complaint: POSSIBLE ABSCESS Time Seen by Provider: 09/28/19 12:06 Primary Care Provider: DEB CARO JR, MD [Primary Care Provider] - Follow up as needed Mode of Arrival: Ambulatory Information source: Patient Notes: 39-year-old female presented to ED for complaint of an abscess to the left mid abdomen. She states she felt a sting like something had bit her or stung her on Wednesday by Wednesday it started swelling within a day or 2 it had gotten to the size it is now. She states she does get some pus out of it but it is still firm and red. She has had abscesses in the past that have been I&D. That she has had a history of MRSA. States she had a hysterectomy. Does smoke drink or drugs. She states every time she takes Tylenol for more than a day or 2 her liver feels inflamed and is painful and she cannot take ibuprofen due to ulcers. I have greeted and performed a rapid initial assessment of this patient. A comprehensive ED assessment and evaluation of the patient, analysis of test results and completion of medical decision making process will be conducted by an additional ED providers. TRAVEL OUTSIDE OF THE [place] IN LAST 30 DAYS: No - Related Data Allergies/Adverse Reactions: glatiramer acetate [From Copaxone] Allergy (Intermediate, Verified 09/30/18 13:55) Penicillins Allergy (Verified 09/30/18 13:55) Past Medical History Pulmonary Medical History: Reports: Hx Bronchitis, Hx Pneumonia Neurological Medical History: Denies: Hx Seizures Renal/ Medical History: Denies: Hx Peritoneal Dialysis Musculoskeltal Medical History: Reports Hx Arthritis, Reports Hx Multiple Sclerosis, Reports Hx Musculoskeletal Deformity, Reports Hx Musculoskeletal Trauma Psychiatric Medical History: Reports: Hx Depression Past Surgical History: Reports: Hx Appendectomy, Hx Cholecystectomy, Hx Hysterectomy, Hx Tonsillectomy. Denies: Hx Pacemaker - Immunizations Hx Diphtheria, Pertussis, Tetanus Vaccination: Yes Physical Exam - Vital signs Vitals: Temp Pulse Resp BP Pulse Ox 98.6 F 117 H 18 112/78 97 09/28/19 11:48 09/28/19 11:48 09/28/19 11:48 09/28/19 11:48 09/28/19 11:48 Course - Vital Signs Vital signs: Temp Pulse Resp BP Pulse Ox 98.6 F 117 H 18 112/78 97 09/28/19 11:48 09/28/19 11:48 09/28/19 11:48 09/28/19 11:48 09/28/19 11:48 Doctor's Discharge - Discharge Referrals: DEB CARO JR, MD [Primary Care Provider] - Follow up as needed
--- NOTE | 2019-09-28 15:10 | ER Document Report ---
HPI - HPI Time Seen by Provider: 09/28/19 12:06 Pain Level: 4 Context: This 39-year-old female presents emergency department with complaints of an abscess to the left side of her abdomen. She reports she felt something sting or bite her on Wednesday. She reports she does have a history of MRSA. She reports the site turned red. She has been keeping the area very clean, she has been applying Neosporin ointment to the area. She reports she was able to obtain some drainage from the site. She reports the firmness has decreased. She denies fever vomiting diarrhea. Reports last time she had this the area became very large because she waited too long to be seen so she wanted to take care of this right away. 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 Lives with: Family Family History: Arthritis, CAD, COPD, CVA, DM, Hyperlipidemia, Hypertension, Malignancy, Thyroid Disfunction Patient has suicidal ideation: No Patient has homicidal ideation: No Pulmonary Medical History: Reports: Hx Bronchitis, Hx Pneumonia Neurological Medical History: Denies: Hx Seizures Renal/ Medical History: Denies: Hx Peritoneal Dialysis Musculoskeletal Medical History: Reports Hx Arthritis, Reports Hx Multiple Sclerosis, Reports Hx Musculoskeletal Deformity, Reports Hx Musculoskeletal Trauma Skin Medical History: Reports Hx MRSA Psychiatric Medical History: Reports: Hx Depression Past Surgical History: Reports: Hx Appendectomy, Hx Cholecystectomy, Hx Hysterectomy, Hx Tonsillectomy. Denies: Hx Pacemaker - Immunizations Hx Diphtheria, Pertussis, Tetanus Vaccination: Yes Vertical Provider Document - CONSTITUTIONAL Agree With Documented VS: Yes Exam Limitations: No Limitations General Appearance: WD/WN, No Apparent Distress - INFECTION CONTROL TRAVEL OUTSIDE OF THE [place] IN LAST 30 DAYS: No - HEENT HEENT: Atraumatic, Normocephalic - NECK Neck: Supple - RESPIRATORY Respiratory: Breath Sounds Normal - GI/ABDOMEN Gastrointestinal: Abdomen Soft - MUSCULOSKELETAL/EXTREMETIES Musculoskeletal/Extremeties: KINGA MUSA - NEURO Level of Consciousness: Awake, Alert, Appropriate Motor/Sensory: No Motor Deficit - DERM Integumentary: Warm, Dry, Abscess Adult Front & Back Diagram: 1 - Circular opening approximately 5 mm with the drainage surrounded by approximately 3 cm of erythema. No joints. Wound culture obtained Course - Re-evaluation Re-evalutation: 09/28/19 19:51 39-year-old female presented to the emergency department with an abscess to the left side of her abdomen after being bit by some type of insect. Patient reports that she has been keeping it clean putting Neosporin on the area. She was able to squeeze area and obtained some drainage. She reports the firmness of the area has decreased since that time. She denies fever vomiting diarrhea. Wound culture was obtained from some drainage. No induration no fluctuance no lacy. Patient was instructed on the importance of keeping the site clean. We discussed the importance of returning to the emergency department if the redness became worsen or more firm. The area was marked with a surgical marker. She was also prescribed Septra. Patient verbalized understanding all instructions. Dictation of this chart was performed using voice recognition software; therefo re, there may be some unintended grammatical errors. - Vital Signs Vital signs: Temp Pulse Resp BP Pulse Ox 98.6 F 117 H 18 112/78 97 09/28/19 11:48 09/28/19 11:48 09/28/19 11:48 09/28/19 11:48 09/28/19 11:48 Discharge - Discharge Clinical Impression: Abdominal wall abscess Condition: Stable Disposition: HOME, SELF-CARE Instructions: Abscess ([facility]), Trimethoprim-Sulfa ([facility]) Additional Instructions: *You have been treated for an abscess *Take medication as prescribed *Monitor the site for signs of increasing infection such as increasing pain, redness, swelling, warmth *Clean the site twice daily as discussed *Follow up with a primary care provider within one week for recheck *Return to ED for signs of increasing infection, worsening condition, changes, needs Prescriptions: Sulfamethoxazole/Trimethoprim [Bactrim Ds Tablet] 1 each PO BID #20 tablet Referrals: DEB CARO JR, MD [Primary Care Provider] - Follow up in 1 week
[2019-09-28 15:21] VITALS: BP 109/75
== END 2019-09-28 15:23 | disposition home or self-care (01) ==
LOC: ER 11:39
DX: L02.211 Cutaneous abscess of abdominal wall (principal); Z86.14 Personal history of Methicillin resistant Staphylococcus aureus infection
CPT/HCPCS: 87070; 87075; 87077; 87186; 87205; 99282